=== PATIENT | male | born 1955 | race Caucasian/White ===

== ENCOUNTER 2024-04-29 11:30 | Outpatient (CLI) | payer MEDICARE, SELFPAY ==
--- NOTE | 2024-04-29 11:15 | CA_ITS ---
APPROVED REPORT EXAM: Comprehensive 2D, Doppler, and color-flow Echocardiogram Director Of Occupational Therapy: Michelle Crowell RVT Ht: 5 ft 9 in Wt: 214lbs BSA: 2.13 BP: 129/87 mmHg Indications: PRE-OP FOR KNEE SYRGERY CLEMENT,EDEMA,ABN EKG,SOA,HTN 2D Dimensions LA Volume 57.40 mL LA Volume Index 26.95 mL/m2 (M/F) 16-34 M-Mode Dimensions LA Diam 3.98 cm (1.9-4.0) LVDd 4.61 cm (3.5-5.7) LVDs 2.79 cm (3.5-5.7) IVSd 1.56 cm (0.6-1.1) PWd 0.76 cm (0.6-1.1) EF (Teich) 70.00% FS 39.50% EDV (Teich) 97.80 mL TAPSE 2.34 (<1.7) ESV (Teich) 29.30 mL LV Diastology E Decel Time 227 (160-240 msec) E/A Ratio 0.7 Aortic Valve JACOBY Index 1.05 cm2/m2 AoV Peak Ricardo. 142.0 (50-130 cm/s) AO Peak GR. 8.10 mmHg AO Mean GR. 5.20 (<5 mmHg) AO VTI 27.7 (18-25 cm) JACOBY (VTI) 2.29 (2.5-4.5 cm2) Mitral Valve MV E Max Ricardo. 63.0 (40-130 cm/s) MV A Velocity 91.0 (40-130 cm/s) E/A Ratio 0.70 MV PHT 66.0 ms Pulmonary Valve PV Peak Velocity 85.0 (50-150 cm/s) Tricuspid Valve TR P. Velocity 302.00 cm/s RAP Estimate 10.00 mmHg RVSP 46.50 mmHg Left Ventricle The left ventricle is normal size. The left ventricular systolic function is normal. The left ventricular ejection fraction is within the normal range. There is increased LV wall thickness. Proximal septal thickening is noted. There is normal LV segmental wall motion. Transmitral Doppler flow pattern suggests impaired LV relaxation. LVEF is 55%. Right Ventricle Right ventricle is mildly dilated. Right ventricle is borderline hypokinetic. Atria Left atrium is mildly dilated. Right atrium is mildly dilated. The interatrial septum is not well-visualized. Aortic Valve The aortic valve is mildly thickened. There is no aortic valvular stenosis. No aortic regurgitation is present. Mitral Valve The mitral valve is normal in structure. No evidence of mitral valve stenosis. Trace mitral regurgitation. Tricuspid Valve Tricuspid valve is grossly normal in structure and function. Mild tricuspid regurgitation. RVSP is 30-35 mmHg. Pulmonic Valve The pulmonary valve is normal in structure. Trace pulmonic regurgitation. Great Vessels The aortic root is normal in size. IVC is normal in size and collapses >50% with inspiration. Pericardium There is no pericardial effusion. Other Information Study Quality: Fair Conclusion Normal biventricular systolic function. Mild RV dilation. Mild biatrial dilation. Mild TR. RVSP is 30-35 mmHg. Electronically signed by : Vesna Roberts MD 04/29/2024 12:19:29
== END 2024-04-29 23:59 | disposition home or self-care (01) ==
PROVIDERS: PCP Emergency Medicine; Visit Provider Internal Medicine
DX: Z01.818 Encounter for other preprocedural examination (principal); I51.7 Cardiomegaly; I36.1 Nonrheumatic tricuspid (valve) insufficiency; R94.31 Abnormal electrocardiogram [ECG] [EKG]; R60.9 Edema, unspecified; R42 Dizziness and giddiness; R06.02 Shortness of breath
CPT/HCPCS: 93306

== ENCOUNTER 2024-05-03 08:59 | Outpatient (CLI) | payer MEDICARE, SELFPAY ==
--- NOTE | 2024-05-03 09:04 | CT_ITS ---
APPROVED REPORT Pi/Senior Research Associate: CLINICAL INDICATION Chest Pain TECHNIQUE Image Acquisition: A 128 slice MDCT scanner ([employer] IntelliDOTa View) was used for data acquisition. A noncontrast coronary calcium scan was performed. A CT attenuation threshold of 130 Hounsfield units (HU) was used for the detection of calcium in contiguous voxels of 1 sq mm in area to be counted as individual lesions. Bolus tracking in the ascending aorta with a threshold of 180 HU was performed. Immediately afterwards, ECG synchronized cardiac CT was then performed from the cardiac base to apex using retrospective gating with ECG tube current modulation. A total of 85 mL of Isovue 370 mg/mL contrast medium was administered at 5 mL/sec followed by a saline flush using a biphasic injection protocol. A tube voltage of 120 KVp was used. The average heart rate at the time of acquisition was 59 bpm and regular. Image Reconstruction Transaxial images were reconstructed at 0.67 mm slide thickness. Data was reviewed interactively on an advanced workstation capable of 2 and 3-dimensional displays in all conventional reconstruction formats, including multiplanar reformations, maximum intensity projections, curved multiplanar reformations, and volume rendered reconstructions. When applicable, selected routine images describing the relevant coronary anatomy and pathology were saved and sent to PACS. Complications None Technical Quality Overall image quality was good. Coronary artery opacification was adequate. Total DLP (Dose-Length Product) is 1339.5 mGy-cm. The reported value represents the total of one or more individual components during the CT acquisition of this date and at this time, and as such, the same value may appear in more than one CT report depending on the interpreting/reporting physicians. COMPARISON None FINDINGS CT Coronary Calcium Scoring LMA (Left Main Artery) = 7 LAD (Left Anterior Descending) = 14 LCX (Left Coronary Circumflex) = 0 RCA (Right Coronary Artery) = 0 Total Calcium Score = 21 using the AJ-130 method. The observed calcium score of 21 is at 30th percentile for subjects of the same age, sex, and race/ethnicity. The interpretation of the calcium heart score is based on the following continuum*: 0 = no calcified plaque detected (risk of coronary artery disease is very low ??? less than 5%) 1-10 = calcium detected in extremely minimal levels (risk of coronary diseases is still low ??? less than 10%) 11-100 = mild levels of plaque detected with certainty (mild or minimal narrowing of heart arteries is likely) 101-400 = definite,at least moderate levels of plaque detected (relatively high risk of a heart attack within 3-5 years) >401-999 = extensive levels of plaque detected (high risk of heart attack, high levels of vascular disease are present, high likelihood of at least one significant coronary narrowing) *The calcium heart score quantifies the burden of coronary calcification/plaque in the coronary arteries. The calcium heart score is not able to evaluate the presence or burden of non-calcified (i.e. soft) plaque. There is mild calcification in the transverse and descending thoracic aorta. Coronary CT Angiography The coronary arterial system is right dominant. Quantitative Stenosis Grading: Left Main (LM): The left main originates normally from the left sinus of Valsalva. The LM bifurcates into the left anterior descending artery and left circumflex artery. There is mixed calcified/noncalcified plaque in the proximal LM, with < 25% luminal stenosis. Left Anterior Descending (LAD) and Diagonal Branches: The LAD gives off 3 diagonal branch(es). There is mixed calcified/noncalcified plaque in the proximal LAD, with up to 25-49% luminal stenosis. There is no evidence of LAD-myocardial bridge. Left Circumflex (LCX) and Obtuse Marginals (OM): The LCX gives off 1 Obtuse Marginal (OM) branch(es). The LCX and its branches are patent with no evidence of atherosclerosis. Right Coronary Artery (RCA): The RCA originates normally from the right sinus of Valsalva. The RCA gives off a posterior descending artery (PDA) and posterolateral (PL) branches. There is noncalcified plaque along the mid and distal RCA segments, with < 25% luminal stenosis. Non-Coronary Cardiac Findings: Analysis of the left ventricular (LV) structure and function was performed after 3-D reconstruction of the LV from axial images, with user-corrected automatic contouring for assessment of LV volumes and user-defined reconstruction from oblique planes for measurement of 3-D cardiac structure and function. -The left ventricle systolic function is normal. -There is no left atrial appendage filling defect. Two right pulmonary veins and two left pulmonary veins drain normally into the left atrium. -No pericardial thickening or calcification. -Central and branch pulmonary arteries in the [id number] are unremarkable. -Thoracic aorta within the visualized thoracic aortic-branches in the [id number] is unremarkable. Extracardiac Structures No significant extra-cardiac findings. Note, however, that this study is focused on the cardiac findings. IMPRESSION -Presence of coronary calcification with an Agatston score = 21 using the AJ-130 method. -The observed calcium score of 21 is at 30th percentile for subjects of the same age, sex, and race/ethnicity. -Mild, non-obstructive atherosclerotic coronary disease, with no evidence of significant flow-limiting atherosclerosis of the coronary arteries. -CAD-RADS 2. Management recommendations per ACC/AHA guidelines*, as clinically appropriate. *Recommendations: CAD RADS 0: Reassurance. Consider non-atherosclerotic causes of chest pain. CAD RADS 1: Consider non-atherosclerotic causes of chest pain. Consider preventive therapy and risk factor modification. CAD RADS 2: Consider non-atherosclerotic causes of chest pain. Consider preventive therapy and risk factor modification, particularly for patients with nonobstructive plaque in multiple segments. CAD RADS 3: Consider further functional testing. Consider symptom-guided anti-ischemic and preventive pharmacotherapy as well as risk factor modification per published guideline statements. CAD RADS 4A: Consider further functional testing or invasive coronary angiography with revascularization per published guideline statements. Consider symptom-guided anti-ischemic and preventive pharmacotherapy as well as risk factor modification per published guideline statements. CAD RADS 4B: Invasive coronary angiography recommended with revascularization per published guideline statements. Consider symptom-guided anti-ischemic and preventive pharmacotherapy as well as risk factor modification per published guideline statements. CAD RADS 5: Consider invasive angiography and/or viability assessment with revascularization per published guideline statements. Consider symptom-guided anti-ischemic and preventive pharmacotherapy as well as risk factor modification per published guideline statements. CRITICAL RESULT None COMMUNICATION Per this written report The coronary and cardiac findings of this CCTA were reviewed, reported, and signed by Jackson Roberts MD ([employer]) Conclusion Electronically signed by : Vesna Roberts MD 05/03/2024 12:33:46
[2024-05-03 09:16] VITALS: BMI 31.6
[2024-05-03 09:17] VITALS: BP 144/80; PULSE 74; RESP 17; TEMP 36.6; O2SAT 97
[2024-05-03] MEDS: METOPROLOL TARTRATE 50MG TABLET PO (09:22)
[2024-05-03] MEDS: IVABRADINE HCL 7.5MG TABLET PO (09:23)
[2024-05-03 09:55] LABS: Anion Gap 9.3 mEq/L (5-15); Blood Urea Nitrogen 20 mg/dl (9-20); Calcium 9.8 mg/dl (8.4-10.2); Carbon Dioxide 26 mmol/L (22.0-30.0); Chloride 106 mmol/L (98-107); Creatinine Clearance Estimated 98 mL/min (50-200); Estimated Glomerular Filt Rate 84 ml/min (>60); GFR (African American) 102 ML/MIN (>60); Glucose 84 mg/dl (74-100); Potassium 4.3 mmoL/L (3.5-5.1); Sodium 137 mmol/L (136-145)
[2024-05-03 10:11] VITALS: BP 147/104; PULSE 71; RESP 16; O2SAT 95
[2024-05-03] MEDS: NITROGLYCERIN 0.4MG SL TABLET SL (10:11)
[2024-05-03 10:14] VITALS: BP 123/84; PULSE 73; RESP 16; O2SAT 96
[2024-05-03 10:17] VITALS: BP 109/72; PULSE 62; RESP 18; O2SAT 96
[2024-05-03] MEDS: METOPROLOL TARTRATE 5MG/5ML VIAL 5 MG IV (10:20)
[2024-05-03 10:30] VITALS: BP 134/78; PULSE 66; RESP 18; O2SAT 98
[2024-05-03] MEDS: SODIUM CHLORIDE 0.9% 10ML SYR (RAD ONLY) 10 ML IV (10:39)
[2024-05-03] MEDS: IOPAMIDOL-370 (76%);100ML BOTTLE 85 ML IV (10:39)
[2024-05-03] MEDS: 0.9 % SODIUM CHLORIDE 50 ML VIAL IV (10:39)
== END 2024-05-03 23:59 | disposition home or self-care (01) ==
PROVIDERS: Visit Provider Internal Medicine
DX: Z01.818 Encounter for other preprocedural examination (principal); R07.2 Precordial pain; R60.9 Edema, unspecified; R94.31 Abnormal electrocardiogram [ECG] [EKG]; R42 Dizziness and giddiness; R06.02 Shortness of breath
CPT/HCPCS: 75574; 80048; Q9967